=== PATIENT | male | born 1975 | race Two or more races ===

== ENCOUNTER 2020-09-27 10:42 | Inpatient (IN) | payer BC, OTHER ==
[~2020-09-27] VITALS: Ht 162.6 cm; Wt 48.0 kg
[2020-09-27] MEDS ORDERED: SODIUM CHLORIDE 0.9% 500 ML IV ONE (11:30)
[2020-09-27 12:03] LABS: Basophils # (auto) 0.1 10 ^3/uL (0-0.2); Basophils % (auto) 0.7 % (0.0-2.0); Eosinophils # (auto) 0.1 10 ^3/uL (0-0.8); Hematocrit 29.8 % (41.0-53.0); Hemoglobin 10.2 g/dL (13.5-17.5); Lymphocytes # (auto) 1.3 10 ^3/uL (0.4-5.4); Lymphocytes % (auto) 16.9 % (10.0-50.0); Mean Corpuscular Hemoglobin 32.6 pg (28.0-32.0); Mean Corpuscular Hgb Conc. 34.4 g/dL (32.0-36.0); Mean Corpuscular Volume 94.7 fL (80.0-100.0); Monocytes # (auto) 0.6 10 ^3/uL (0-1.3); Neutrophils # (auto) 5.5 10 ^3/uL (1.6-8.6); Neutrophils % (auto) 73.4 % (37.0-80.0); Nucleated Red Blood Cells % 0.2 %; Red Blood Cells 3.14 10^6/uL (4.5-5.90); Red Cell Distribution Width 17.6 % (11.8-14.3); White Blood Cell 7.5 10^3/uL (4.4-10.8)
[2020-09-27 12:18] LABS: Albumin 1.5 g/dL (3.4-5.0); Calcium 7.6 mg/dL (8.5-10.1); Magnesium 2.4 mg/dL (1.6-2.6); Potassium 3.6 mmol/L (3.5-5.1)
[2020-09-27 12:24] LABS: BUN/Creatinine Ratio 19.2; Bilirubin, Total 0.3 mg/dL (0.2-1.0); Total Protein 9.1 g/dL (6.4-8.2)
[2020-09-27] MEDS ORDERED: ZINC SULFATE 220mg CAP or TAB PO ONE (15:00)
[2020-09-27] MEDS ORDERED: methylPREDNISolone SOD SUCC 125 MG/2 ML VL IV ONE (15:00)
[2020-09-27] MEDS ORDERED: ASCORBIC ACID 500 MG TAB PO ONE (15:00)
[2020-09-27] MEDS ORDERED: CHOLECALCIFEROL (VITD3) 2,000 UNIT CAP/TAB PO ONE (15:00)
[2020-09-27] MEDS ORDERED: NITROGLYCERIN 0.4 MG SL TAB SL PRN (17:30)
[2020-09-27] MEDS ORDERED: MORPHINE SULFATE INJECTION 2 MG/2 ML SYRG IV PRN ×2 (17:30→18:30)
[2020-09-27] MEDS ORDERED: levoFLOXacin 500MG 100 ML IV ONE (18:30)
[2020-09-27] MEDS ORDERED: DEXTROSE (50%) 50ML SYRG IV PRN (18:30)
[2020-09-27] MEDS ORDERED: traMADol HCL 50 MG TAB PO PRN (18:30)
[2020-09-27] MEDS ORDERED: PROMETHAZINE HCL 25 MG/ML 1ML IV PRN (18:30)
[2020-09-27] MEDS ORDERED: ALBUTEROL SULF HFA 90MCG INH 200DOSE IN PRN (18:30)
[2020-09-27] MEDS ORDERED: OMNIPAQUE ORAL SOLN 500ml 12mg/ml PO ONE (18:30)
[2020-09-27] MEDS ORDERED: IOHEXOL 300 MG/ML 100ML BOTTLE IJ ONE (18:31)
[2020-09-27] MEDS: SODIUM CHLORIDE 0.9% 1,000 ML IV SCH (18:41)
[2020-09-27 19:48] LABS: Urine Bacteria NONE SEEN /hpf (None Seen); Urine Blood Negative /uL (Negative); Urine Specific Gravity 1.007 (1.001-1.035); Urine WBC 1 /hpf (0 - 3)
[2020-09-27] MEDS ORDERED: IPRATROPIUM BROMIDE HFA AER IN SCH (22:00)
[2020-09-27] MEDS: NYSTATIN (MOUTH-THROAT) 500,000 UNITS/5 ML SUSP MT SCH (22:00)
[2020-09-27] MEDS ORDERED: BUDESONIDE (INHALATION) 180 MCG IH IN SCH (22:00)
[2020-09-27] MEDS: ENOXAPARIN SOD 40 MG/0.4 ML SYRINGE SC SCH (22:00)
[2020-09-27] MEDS: FLORASTOR (S. BOULARDII) 250 MG CAP PO SCH (22:00)
[2020-09-27] MEDS: CLINDAMYCIN 600MG IV 50 ML IV SCH (22:00)
[2020-09-27 22:12] LABS: INR 1.02 (0.9-1.15)
[2020-09-27] MEDS: ACCU-CHEK COMFORT CURVE STRIP VI SCH (23:00)
[2020-09-28] MEDS: AZITHROMYCIN 500MG/ 250ML 250 ML IV SCH (02:00)
[2020-09-28 05:26] LABS: Basophils # (auto) 0.1 10 ^3/uL (0-0.2); Basophils % (auto) 1.2 % (0.0-2.0); Eosinophils # (auto) 0 10 ^3/uL (0-0.8); Eosinophils % (auto) 0.1 % (0.0-7.0); Hematocrit 30.8 % (41.0-53.0); Hemoglobin 10.6 g/dL (13.5-17.5); Lymphocytes # (auto) 1.4 10 ^3/uL (0.4-5.4); Lymphocytes % (auto) 33.7 % (10.0-50.0); Mean Corpuscular Hemoglobin 32.8 pg (28.0-32.0); Mean Corpuscular Hgb Conc. 34.4 g/dL (32.0-36.0); Mean Corpuscular Volume 95.5 fL (80.0-100.0); Monocytes # (auto) 0.3 10 ^3/uL (0-1.3); Monocytes % (auto) 5.8 % (0.0-12.0); Neutrophils # (auto) 2.5 10 ^3/uL (1.6-8.6); Neutrophils % (auto) 59.2 % (37.0-80.0); Nucleated Red Blood Cells % 0.7 %; Red Blood Cells 3.22 10^6/uL (4.5-5.90); Red Cell Distribution Width 17.3 % (11.8-14.3); White Blood Cell 4.3 10^3/uL (4.4-10.8)
[2020-09-28 05:52] LABS: Albumin 1.2 g/dL (3.4-5.0)
[2020-09-28 05:57] LABS: BUN/Creatinine Ratio 24.1; Bilirubin, Total 0.2 mg/dL (0.2-1.0); Total Protein 8.1 g/dL (6.4-8.2)
[2020-09-28] MEDS: NYSTATIN (MOUTH-THROAT) 500,000 UNITS/5 ML SUSP MT SCH ×4 (06:00→22:41)
[2020-09-28] MEDS: CLINDAMYCIN 600MG IV 50 ML IV SCH ×3 (06:00→22:41)
[2020-09-28] MEDS: ACCU-CHEK COMFORT CURVE STRIP VI SCH ×4 (07:10→22:42)
[2020-09-28] MEDS ORDERED: levoFLOXacin 500MG 100 ML IV SCH (10:00)
[2020-09-28] MEDS ORDERED: DexAMETHasone SOD PHOS 10MG/1ML VIAL INJ IV SCH (10:00)
[2020-09-28] MEDS: PANTOPRAZOLE 40 MG TAB PO SCH (10:57)
[2020-09-28] MEDS: FLORASTOR (S. BOULARDII) 250 MG CAP PO SCH ×2 (10:57→22:42)
[2020-09-28] MEDS: ZINC SULFATE 220mg CAP or TAB PO SCH (10:57)
[2020-09-28] MEDS: ASCORBIC ACID 1,000 MG TAB PO SCH (10:58)
[2020-09-28] MEDS: ENOXAPARIN SOD 40 MG/0.4 ML SYRINGE SC SCH (10:58)
[2020-09-28] MEDS: CHOLECALCIFEROL (VITD3) 2,000 UNIT CAP/TAB PO SCH (10:58)
[2020-09-28] MEDS: SODIUM CHLORIDE 0.9% 1,000 ML IV SCH ×3 (11:07→15:12)
[2020-09-28 15:46] LABS: % Iron Saturation 81.5 % (20-55)
[2020-09-28] MEDS ORDERED: InsuLIN REG 1unit/0.01ml Soln (100units/ml) SC ONE (17:00)
[2020-09-28] MEDS ORDERED: ACCU-CHEK COMFORT CURVE STRIP VI ONE (17:00)
[2020-09-29] MEDS: AZITHROMYCIN 500MG/ 250ML 250 ML IV SCH ×2 (00:50→22:40)
[2020-09-29 03:07] VITALS: BP 107/74
[2020-09-29 05:00] VITALS: BP 103/75
[2020-09-29 05:36] LABS: Basophils # (auto) 0 10 ^3/uL (0-0.2); Basophils % (auto) 0.2 % (0.0-2.0); Eosinophils # (auto) 0 10 ^3/uL (0-0.8); Hematocrit 26.6 % (41.0-53.0); Hemoglobin 9.2 g/dL (13.5-17.5); Lymphocytes # (auto) 1.2 10 ^3/uL (0.4-5.4); Lymphocytes % (auto) 19.8 % (10.0-50.0); Mean Corpuscular Hemoglobin 33.1 pg (28.0-32.0); Mean Corpuscular Hgb Conc. 34.8 g/dL (32.0-36.0); Mean Corpuscular Volume 95.2 fL (80.0-100.0); Monocytes # (auto) 0.7 10 ^3/uL (0-1.3); Monocytes % (auto) 10.6 % (0.0-12.0); Neutrophils # (auto) 4.3 10 ^3/uL (1.6-8.6); Neutrophils % (auto) 69.4 % (37.0-80.0); Nucleated Red Blood Cells % 0.2 %; Red Blood Cells 2.79 10^6/uL (4.5-5.90); White Blood Cell 6.3 10^3/uL (4.4-10.8)
[2020-09-29 05:48] LABS: INR 0.99 (0.9-1.15)
[2020-09-29] MEDS: CLINDAMYCIN 600MG IV 50 ML IV SCH ×2 (05:52→13:59)
[2020-09-29] MEDS: SODIUM CHLORIDE 0.9% 1,000 ML IV SCH ×2 (05:52→22:41)
[2020-09-29] MEDS: ACCU-CHEK COMFORT CURVE STRIP VI SCH ×4 (05:53→22:40)
[2020-09-29] MEDS: NYSTATIN (MOUTH-THROAT) 500,000 UNITS/5 ML SUSP MT SCH ×4 (05:53→22:40)
[2020-09-29 05:58] LABS: Magnesium 2.4 mg/dL (1.6-2.6); Potassium 3.8 mmol/L (3.5-5.1)
[2020-09-29 06:04] LABS: Albumin 1.3 g/dL (3.4-5.0); BUN/Creatinine Ratio 27.5; Bilirubin, Total 0.2 mg/dL (0.2-1.0); Calcium 7.4 mg/dL (8.5-10.1); Total Protein 7.8 g/dL (6.4-8.2)
[2020-09-29 09:00] VITALS: BP 96/64
[2020-09-29] MEDS: ZINC SULFATE 220mg CAP or TAB PO SCH (09:53)
[2020-09-29] MEDS: FLORASTOR (S. BOULARDII) 250 MG CAP PO SCH ×2 (09:53→22:40)
[2020-09-29] MEDS: PANTOPRAZOLE 40 MG TAB PO SCH (09:54)
[2020-09-29] MEDS: ENOXAPARIN SOD 40 MG/0.4 ML SYRINGE SC SCH (09:54)
[2020-09-29] MEDS: ASCORBIC ACID 1,000 MG TAB PO SCH (09:54)
[2020-09-29] MEDS: CHOLECALCIFEROL (VITD3) 2,000 UNIT CAP/TAB PO SCH (09:54)
[2020-09-29 13:00] VITALS: BP 105/70
[2020-09-29] MEDS ORDERED: cefTRIAXone 1GM/50ML D5W 50 ML IV ONE (14:00)
[2020-09-29 17:00] VITALS: BP 107/76
[2020-09-29 22:00] VITALS: BP 112/77
[2020-09-30 05:00] VITALS: BP 106/85
[2020-09-30] MEDS: NYSTATIN (MOUTH-THROAT) 500,000 UNITS/5 ML SUSP MT SCH ×2 (06:11→12:00)
[2020-09-30] MEDS: ACCU-CHEK COMFORT CURVE STRIP VI SCH ×3 (06:12→17:00)
[2020-09-30 06:42] LABS: Hematocrit 29.4 % (41.0-53.0); Hemoglobin 10.1 g/dL (13.5-17.5)
[2020-09-30 06:53] LABS: Albumin 1.5 g/dL (3.4-5.0); Magnesium 2.2 mg/dL (1.6-2.6); Potassium 3.6 mmol/L (3.5-5.1)
[2020-09-30 06:57] LABS: Bilirubin, Direct 0.1 mg/dL (0-0.2); Bilirubin, Total 0.2 mg/dL (0.2-1.0); Total Protein 8.5 g/dL (6.4-8.2)
[2020-09-30 09:00] VITALS: BP 103/66
[2020-09-30] MEDS ORDERED: cefTRIAXone 1GM/50ML D5W 50 ML IV SCH (09:00)
[2020-09-30] MEDS: SODIUM CHLORIDE 0.9% 1,000 ML IV SCH (09:17)
[2020-09-30] MEDS: PANTOPRAZOLE 40 MG TAB PO SCH (09:17)
[2020-09-30] MEDS: ZINC SULFATE 220mg CAP or TAB PO SCH (09:17)
[2020-09-30] MEDS: ASCORBIC ACID 1,000 MG TAB PO SCH (09:17)
[2020-09-30] MEDS: ENOXAPARIN SOD 40 MG/0.4 ML SYRINGE SC SCH (09:18)
[2020-09-30] MEDS: CHOLECALCIFEROL (VITD3) 2,000 UNIT CAP/TAB PO SCH (09:18)
[2020-09-30] MEDS: FLORASTOR (S. BOULARDII) 250 MG CAP PO SCH (10:26)
[2020-09-30 13:00] VITALS: BP 103/70
[2020-09-30] MEDS ORDERED: MULT-351 PO (15:10)
[2020-09-30] MEDS ORDERED: LEVO750T8 PO (15:10)
[2020-09-30 16:06] VITALS: BP 103/70
[2020-09-30 17:08] VITALS: BP 103/66
== END 2020-09-30 17:00 | disposition home or self-care (01) | DRG 194 ==
LOC: ER 10:42 → TELE 17:30 → TELE-WESTW 21:58
PROVIDERS: ADMIT Internal Medicine; ATTEND Internal Medicine
DX: J12.9 Viral pneumonia, unspecified (principal); B37.0 Candidal stomatitis; D61.818 Other pancytopenia; D63.8 Anemia in other chronic diseases classified elsewhere; Z20.822 Contact with and (suspected) exposure to COVID-19; R16.1 Splenomegaly, not elsewhere classified; R74.8 Abnormal levels of other serum enzymes; R59.0 Localized enlarged lymph nodes; Y90.9 Presence of alcohol in blood, level not specified; R73.9 Hyperglycemia, unspecified; F10.10 Alcohol abuse, uncomplicated; F12.90 Cannabis use, unspecified, uncomplicated; K70.10 Alcoholic hepatitis without ascites; Z80.9 Family history of malignant neoplasm, unspecified; Z83.3 Family history of diabetes mellitus; Z79.899 Other long term (current) drug therapy
CPT/HCPCS: 36415; 71045; 71250; 74176; 74177; 76705; 80053; 80061; 80076; 81001; 82105; 82140; 82728; 82962; 83036; 83540; 83550; 83735; 83880; 84132; 84155; 84156; 84165; 84166; 84443; 85014; 85018; 85025; 85610; 85652; 86141; 86738; 87040; 87278; 87426; 93005; 93306; 96361; 96374; G0378; J0696; J1100; J1956; J3490

== ENCOUNTER 2021-08-22 21:53 | Inpatient (IN) | payer BC ==
[~2021-08-22] VITALS: Ht 162.6 cm; Wt 46.0 kg
[~2021-08-22 21:53] MED LIST: LEVO750T8 PO; MULT-351 PO
[2021-08-22] MEDS ORDERED: SODIUM CHLORIDE 0.9% 1,000 ML IV ONE (22:45)
[2021-08-22 22:50] LABS: Basophils # (auto) 0 10 ^3/uL (0-0.2); Basophils % (auto) 0.6 % (0.0-2.0); Eosinophils # (auto) 0.1 10 ^3/uL (0-0.8); Eosinophils % (auto) 1.1 % (0.0-7.0); Hematocrit 28.4 % (41.0-53.0); Hemoglobin 9.6 g/dL (13.5-17.5); Lymphocytes # (auto) 0.9 10 ^3/uL (0.4-5.4); Lymphocytes % (auto) 11.9 % (10.0-50.0); Mean Corpuscular Hemoglobin 29.6 pg (28.0-32.0); Mean Corpuscular Hgb Conc. 33.8 g/dL (32.0-36.0); Mean Corpuscular Volume 87.5 fL (80.0-100.0); Monocytes # (auto) 0.7 10 ^3/uL (0-1.3); Monocytes % (auto) 9.1 % (0.0-12.0); Neutrophils # (auto) 5.9 10 ^3/uL (1.6-8.6); Neutrophils % (auto) 77.3 % (37.0-80.0); Nucleated Red Blood Cells % 0.1 %; Red Blood Cells 3.24 10^6/uL (4.5-5.90); Red Cell Distribution Width 15.5 % (11.8-14.3); White Blood Cell 7.6 10^3/uL (4.4-10.8)
[2021-08-22 23:09] LABS: Albumin 2.1 g/dL (3.4-5.0); BUN/Creatinine Ratio 19.2; Calcium 7.8 mg/dL (8.5-10.1); Potassium 3.8 mmol/L (3.5-5.1)
[2021-08-22 23:11] LABS: Bilirubin, Total 0.7 mg/dL (0.2-1.0); Total Protein 7.9 g/dL (6.4-8.2)
[2021-08-22 23:19] LABS: INR 1.08 (0.9-1.15); Partial Thromboplastin Time 32.9 sec (24.6-33.4)
[2021-08-23] MEDS ORDERED: methylPREDNISolone SOD SUCC 125 MG/2 ML VL IV ONE (00:30)
[2021-08-23] MEDS ORDERED: levoFLOXacin 500MG 100 ML IV ONE (00:30)
[2021-08-23] MEDS ORDERED: ONDANSETRON HCL 4 MG/2 ML VIAL IV PRN (04:15)
[2021-08-23] MEDS: SODIUM CHLORIDE 0.9% 1,000 ML IV SCH ×2 (05:00→16:12)
[2021-08-23 05:31] LABS: Urine Bacteria NONE SEEN /hpf (None Seen); Urine Blood Negative /uL (Negative); Urine Budding Yeast OCCASIONAL /hpf (None Seen); Urine Specific Gravity 1.004 (1.001-1.035); Urine WBC 8 /hpf (0 - 3)
[2021-08-23 05:39] LABS: Alcohol, Urine < 3.0 mg/dL (0-10); Amphetamine Screen, Urine NEGATIVE (NEGATIVE); Barbiturate Scree,Urine NEGATIVE (NEGATIVE); Benzodiazephine Screen, Urine NEGATIVE (NEGATIVE); Cannabinoid Screen, Urine NEGATIVE (NEGATIVE); Cocaine Screen, Urine NEGATIVE (NEGATIVE); Opiate Scree,Urine NEGATIVE (NEGATIVE); Phencyclidine Screen, Urine NEGATIVE (NEGATIVE)
[2021-08-23] MEDS: NYSTATIN (MOUTH-THROAT) 500,000 UNITS/5 ML SUSP MT SCH ×4 (06:02→22:12)
[2021-08-23] MEDS: PANTOPRAZOLE 40 MG TAB PO SCH (09:38)
[2021-08-23] MEDS: BIKTARVY PO SCH ×2 (09:40→12:15)
[2021-08-23] MEDS ORDERED: SULFAMETH-TRIMETH 80/16MG-ML 10 ML in D5W 5% 250 ML IV SCH (10:00)
[2021-08-23] MEDS ORDERED: BICT1TAB PO (13:54)
[2021-08-23] MEDS ORDERED: TRAZ-184 PO (17:31)
[2021-08-23] MEDS ORDERED: FERR325T20 PO (17:31)
[2021-08-23] MEDS ORDERED: OYST500T28 PO (17:31)
[2021-08-23 17:56] VITALS: BP 108/62
[2021-08-23 22:00] VITALS: BP 99/72
[2021-08-24] MEDS: SODIUM CHLORIDE 0.9% 1,000 ML IV SCH ×2 (03:47→15:19)
[2021-08-24 05:00] VITALS: BP 100/68
[2021-08-24 05:54] LABS: Basophils # (auto) 0 10 ^3/uL (0-0.2); Basophils % (auto) 0.1 % (0.0-2.0); Eosinophils # (auto) 0 10 ^3/uL (0-0.8); Hematocrit 28.5 % (41.0-53.0); Hemoglobin 9.7 g/dL (13.5-17.5); Lymphocytes # (auto) 0.8 10 ^3/uL (0.4-5.4); Lymphocytes % (auto) 10.6 % (10.0-50.0); Mean Corpuscular Hemoglobin 30.1 pg (28.0-32.0); Mean Corpuscular Volume 88.5 fL (80.0-100.0); Monocytes # (auto) 0.6 10 ^3/uL (0-1.3); Monocytes % (auto) 7.3 % (0.0-12.0); Neutrophils # (auto) 6.4 10 ^3/uL (1.6-8.6); Nucleated Red Blood Cells % 0.1 %; Red Blood Cells 3.22 10^6/uL (4.5-5.90); Red Cell Distribution Width 15.6 % (11.8-14.3); White Blood Cell 7.8 10^3/uL (4.4-10.8)
[2021-08-24] MEDS: NYSTATIN (MOUTH-THROAT) 500,000 UNITS/5 ML SUSP MT SCH ×4 (06:00→21:50)
[2021-08-24 06:09] LABS: Potassium 3.7 mmol/L (3.5-5.1)
[2021-08-24 06:14] LABS: Albumin 1.6 g/dL (3.4-5.0); BUN/Creatinine Ratio 25.8; Calcium 7.4 mg/dL (8.5-10.1)
[2021-08-24 06:17] LABS: Bilirubin, Total 0.4 mg/dL (0.2-1.0); Total Protein 6.5 g/dL (6.4-8.2)
[2021-08-24 09:14] VITALS: BP 101/75
[2021-08-24] MEDS: PANTOPRAZOLE 40 MG TAB PO SCH (09:38)
[2021-08-24] MEDS: BIKTARVY PO SCH (09:38)
[2021-08-24] MEDS: cefTRIAXone 1GM/50ML D5W 50 ML IV SCH (09:38)
[2021-08-24] MEDS ORDERED: LORazepam 2MG/ML-1ML VIAL IV ONE (11:30)
[2021-08-24 12:41] VITALS: BP 107/78
[2021-08-24 16:28] VITALS: BP 96/67
[2021-08-24] MEDS: LACTULOSE 20Gm/30ML SOLN PO SCH (21:50)
[2021-08-24 22:00] VITALS: BP 103/75
[2021-08-25] MEDS: SODIUM CHLORIDE 0.9% 1,000 ML IV SCH (03:19)
[2021-08-25 05:00] VITALS: BP 100/73
[2021-08-25] MEDS: NYSTATIN (MOUTH-THROAT) 500,000 UNITS/5 ML SUSP MT SCH ×2 (05:35→12:26)
[2021-08-25 06:17] LABS: Basophils # (auto) 0 10 ^3/uL (0-0.2); Basophils % (auto) 0.3 % (0.0-2.0); Eosinophils # (auto) 0 10 ^3/uL (0-0.8); Eosinophils % (auto) 0.3 % (0.0-7.0); Hematocrit 29.6 % (41.0-53.0); Lymphocytes # (auto) 0.5 10 ^3/uL (0.4-5.4); Mean Corpuscular Hemoglobin 29.8 pg (28.0-32.0); Mean Corpuscular Hgb Conc. 33.7 g/dL (32.0-36.0); Mean Corpuscular Volume 88.6 fL (80.0-100.0); Monocytes # (auto) 0.5 10 ^3/uL (0-1.3); Monocytes % (auto) 12.1 % (0.0-12.0); Neutrophils # (auto) 3.4 10 ^3/uL (1.6-8.6); Neutrophils % (auto) 75.3 % (37.0-80.0); Nucleated Red Blood Cells % 0.3 %; Red Blood Cells 3.34 10^6/uL (4.5-5.90); Red Cell Distribution Width 15.5 % (11.8-14.3); White Blood Cell 4.5 10^3/uL (4.4-10.8)
[2021-08-25 06:44] LABS: Albumin 1.8 g/dL (3.4-5.0); Calcium 7.7 mg/dL (8.5-10.1); Potassium 3.5 mmol/L (3.5-5.1)
[2021-08-25 06:47] LABS: BUN/Creatinine Ratio 15.8; Bilirubin, Total 0.5 mg/dL (0.2-1.0); Total Protein 6.8 g/dL (6.4-8.2)
[2021-08-25 08:35] VITALS: BP 112/75
[2021-08-25] MEDS: LACTULOSE 20Gm/30ML SOLN PO SCH (10:10)
[2021-08-25] MEDS: cefTRIAXone 1GM/50ML D5W 50 ML IV SCH (10:10)
[2021-08-25] MEDS: PANTOPRAZOLE 40 MG TAB PO SCH (10:11)
[2021-08-25] MEDS: BIKTARVY PO SCH (10:11)
[2021-08-25] MEDS ORDERED: LACT10SO3 PO (11:54)
[2021-08-25] MEDS ORDERED: CEFU500T43 PO (11:54)
[2021-08-25] MEDS ORDERED: FLUC200T50 PO (11:57)
[2021-08-25 12:36] VITALS: BP 111/78
[2021-08-25 14:45] VITALS: BP 125/87
== END 2021-08-25 16:34 | disposition home or self-care (01) | DRG 441 ==
LOC: ER 21:53 → OVERFLOW 08-23 04:04 → WEST WING 08-23 17:44
PROVIDERS: ADMIT Nurse Practitioner; ATTEND Internal Medicine
DX: K72.90 Hepatic failure, unspecified without coma (principal); G92.8 Other toxic encephalopathy; J18.9 Pneumonia, unspecified organism; E87.1 Hypo-osmolality and hyponatremia; N39.0 Urinary tract infection, site not specified; E44.0 Moderate protein-calorie malnutrition; Z68.1 Body mass index [BMI] 19.9 or less, adult; K70.9 Alcoholic liver disease, unspecified; R79.89 Other specified abnormal findings of blood chemistry; Z20.822 Contact with and (suspected) exposure to COVID-19; Z79.899 Other long term (current) drug therapy; Z80.9 Family history of malignant neoplasm, unspecified; Z83.3 Family history of diabetes mellitus
CPT/HCPCS: 36415; 70450; 70551; 71045; 76705; 80053; 80307; 80320; 81001; 82140; 82607; 83605; 84443; 84484; 85025; 85610; 85730; 87086; 87088; 96361; 96365; 96375; G0378; J0696; J1956; J3490; J7060